=== PATIENT | male | born 1985 | race Caucasian/White ===

== ENCOUNTER 2025-08-18 21:47 | Emergency (ER) | payer MEDICAID ==
[~2025-08-18] VITALS: Ht 170.2 cm; Wt 78.0 kg
[2025-08-18 22:08] VITALS: TEMP 36.8; O2SAT 100
[2025-08-18] MEDS: IBUPROFEN 400MG TABLET PO ONE (23:30)
[2025-08-18] MEDS ORDERED: NAPR-1176 MT (23:57)
[2025-08-19 00:31] VITALS: BP 135/95; PULSE 59; RESP 18; O2SAT 96
== END 2025-08-19 00:32 | disposition home or self-care (01) ==
LOC: ER 21:47
DX: S60.222A Contusion of left hand, initial encounter (principal); W20.8XXA Other cause of strike by thrown, projected or falling object, initial encounter
CPT/HCPCS: 29130; 73130; 99283